=== PATIENT | female | born 1985 | race African-American/Black ===

== ENCOUNTER 2021-01-16 08:44 | Emergency (ER) | payer MEDICAID ==
[~2021-01-16] VITALS: Ht 157.5 cm; Wt 60.0 kg
[2021-01-16 08:52] VITALS: BP 130/85
[2021-01-16] MEDS ORDERED: OFLO5DRO4 LEFT EAR (10:29)
[2021-01-16] MEDS ORDERED: AMOX-494 MT (10:29)
[2021-01-16] MEDS ORDERED: ACETAMINOPHEN 325MG TABLET PO ONE (11:15)
[2021-01-17] MEDS ORDERED: HYDR-4001 MT (04:17)
[2021-01-17] MEDS ORDERED: IBUP-2030 MT (04:17)
== END 2021-01-16 11:36 | disposition home or self-care (01) ==
LOC: ER 08:44
DX: H66.92 Otitis media, unspecified, left ear (principal); H60.92 Unspecified otitis externa, left ear
CPT/HCPCS: 99283

== ENCOUNTER 2021-01-17 02:49 | Emergency (ER) | payer MEDICAID ==
[~2021-01-17] VITALS: Ht 152.4 cm; Wt 60.0 kg
[~2021-01-17 02:49] MED LIST: AMOX-494 MT; OFLO5DRO4 LEFT EAR
[2021-01-17 03:02] VITALS: BP 137/108
[2021-01-17] MEDS ORDERED: HYDROCODONE/ACETAMINOPHEN 5/325MG TABLET PO ONE (03:30)
[2021-01-17] MEDS ORDERED: IBUP-2030 MT (04:17)
[2021-01-17] MEDS ORDERED: HYDR-4001 MT (04:17)
== END 2021-01-17 04:50 | disposition home or self-care (01) ==
LOC: ER 02:49
DX: H66.92 Otitis media, unspecified, left ear (principal)
CPT/HCPCS: 81025; 99283